=== PATIENT | male | born 2000 | race Hispanic/Latino ===

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

== ENCOUNTER 2023-06-13 11:24 | Emergency (ER) | payer SELFPAY ==
[~2023-06-13] VITALS: Ht 172.7 cm; Wt 66.6 kg
[2023-06-13 12:42] VITALS: BP 117/68
== END 2023-06-13 13:02 | disposition home or self-care (01) | DRG 566 ==
LOC: ED 11:24
DX: M79.5 Residual foreign body in soft tissue (principal); Z72.0 Tobacco use